=== PATIENT | female | born 2000 | race Caucasian/White ===

== ENCOUNTER 2021-10-16 16:44 | Emergency (ER) | payer OTHER ==
[~2021-10-16] VITALS: Ht 152.4 cm; Wt 88.9 kg
[~2021-10-16 16:44] MED LIST: CITALOPRAM HBR20 MG PO; HYDROCODON-ACE1 EA10 PO; LAMICTAL5 MG PO; LAMOTRIGINE100 MG PO; MINIPRESS1 MG PO; PHENERGAN12.5 MG RC; PROMETHAZINE HC25 M1 PO; TRAMADOL HCL50 MG PO; TRAZODONE HCL50 MG PO; VENTOLIN HFA18 GM INH; ZOFRAN ODT4 MG PO
[2021-10-16] MEDS ORDERED: ONDANSETRON ODT4 MG SL (20:20)
== END 2021-10-16 20:33 | disposition home or self-care (01) ==
LOC: ED 16:44
DX: G43.909 Migraine, unspecified, not intractable, without status migrainosus (principal); J45.909 Unspecified asthma, uncomplicated; Z88.2 Allergy status to sulfonamides; Z88.8 Allergy status to other drugs, medicaments and biological substances; Z88.0 Allergy status to penicillin; Z79.899 Other long term (current) drug therapy
CPT/HCPCS: 36415; 80048; 85025; 96361; 96374; 96375; 99284-25; J0780; J1200; J1885; J7121